=== PATIENT | male | born 1955 | race Caucasian/White ===

== ENCOUNTER 2017-10-09 18:20 | Emergency (ER) | payer OTHER ==
[2017-10-09 18:33] VITALS: BP 156/91; PULSE 81; TEMP 98.5; BMI 25.2
--- NOTE | 2017-10-09 18:34 | PDOC ---
Rapid Medical Evaluation Chief Complaint: Blood Pressure Problem Time Seen by Provider: 10/09/17 18:29 Medical Evaluation: Allergies Allergy/AdvReac Type Severity Reaction Status Date / Time No Known Allergies Allergy Verified 10/09/17 18:29 10/09/17 18:31 Pt. presents to the ED for complaints of HTN, low appetite, dizziness and weakness. Pt was evaluated in an ER in [place] and diagnosed with Vertigo. Was given topriamate for his symptoms, but had an adverse drug reaction. States that he still feels weak. Dizziness has improved some. Exam: No gross neuro deficits, ambulatory. AAOx3, CTAB Orders: Labs, EKG, CXR Pt to proceed to ED for further evaluation Discharge Disposition - Diagnosis Weakness - Referrals - Patient Instructions - Post Discharge Activity
--- NOTE | 2017-10-09 20:09 | PDOC ---
History of Present Illness - General History Source: Patient Exam Limitations: No Limitations - History of Present Illness Initial Comments: 10/09/17 20:26 The patient is a 62 year old male with a significant PMH of hypertension who presents to the emergency department secondary to experiencing episodes of general malaise. The patient reports some generalized weakness associated with his symptoms. The patient states that he was recently seen in the hospital by which he was diagnosed with vertigo. The patient reports that he was also recently prescribed Topiramate for his blood pressure. The patient denies any other symptoms. He denies any fever, chills, nausea, vomit, diarrhea, constipation or urinary symptoms. He denies any chest pain, shortness of breath , headache and dizziness. The patient denies any other complaints. <Dary Berry - Last Filed: 10/09/17 21:40> - General History Source: Patient <Antony Marx - Last Filed: 10/09/17 22:30> - General Chief Complaint: Loss of Appetite Stated Complaint: BLOOD PRESSURE PROBLEM Time Seen by Provider: 10/09/17 18:29 Past History <Dary Berry - Last Filed: 10/09/17 21:40> - Past Medical History Cardiac Disorders: Yes (HX RAPID HEARTBEAT IN PAST) COPD: No HTN: Yes - Immunization History Immunization Up to Date: Yes - Suicide/Smoking/Psychosocial Hx Smoking History: Never smoked Hx Alcohol Use: No Drug/Substance Use Hx: No Substance Use Type: None <Antony Marx - Last Filed: 10/09/17 22:30> - Past Medical History Allergies/Adverse Reactions: Allergies Allergy/AdvReac Type Severity Reaction Status Date / Time topiramate Allergy Severe shaking, Verified 10/09/17 18:32 weakness Home Medications: Ambulatory Orders Aspirin [ASA -] 81 mg PO DAILY 05/28/15 Enalapril Maleate [Vasotec -] 20 mg PO DAILY 05/28/15 Ibuprofen [Motrin -] 600 mg PO TID #21 tablet 05/28/15 Review of Systems - Review of Systems Able to Perform ROS?: Yes Comments:: 10/09/17 20:26 CONSTITUTIONAL: (+)generalized weakness, malaise Absent: fever, chills, diaphoresis, loss of appetite HEENT: Absent: rhinorrhea, nasal congestion, throat pain, throat swelling, difficulty swallowing, mouth swelling, ear pain, eye pain, visual Changes CARDIOVASCULAR: Absent: chest pain, syncope, palpitations, irregular heart rate, lightheadedness , peripheral edema RESPIRATORY: Absent: cough, shortness of breath, dyspnea with exertion, orthopnea, wheezing, stridor, hemoptysis GASTROINTESTINAL: Absent: abdominal pain, abdominal distension, nausea, vomiting, diarrhea, constipation, melena, hematochezia GENITOURINARY: Absent: dysuria, frequency, urgency, hesitancy, hematuria, flank pain, genital pain MUSCULOSKELETAL: Absent: myalgia, arthralgia, joint swelling SKIN: Absent: rash, itching, pallor HEMATOLOGIC/IMMUNOLOGIC: Absent: easy bleeding, easy bruising, lymphadenopathy, frequent infections ENDOCRINE: Absent: unexplained weight gain, unexplained weight loss, heat intolerance, cold intolerance NEUROLOGIC: Absent: headache, focal weakness or paresthesias, dizziness, unsteady gait, seizure, mental status changes, bladder or bowel incontinence PSYCHIATRIC: Absent: anxiety, depression, suicidal or homicidal ideation, hallucinations. <Dary Berry - Last Filed: 10/09/17 21:40> *Physical Exam - Vital Signs Last Vital Signs Temp Pulse Resp BP Pulse Ox 98.5 F 81 18 156/91 100 10/09/17 18:29 10/09/17 18:29 10/09/17 18:29 10/09/17 18:29 10/09/17 18:29 - Physical Exam Comments: 10/09/17 20:26 GENERAL: Well developed, well nourished. Awake and alert. No acute distress. HEENT: Normocephalic, atraumatic. PERRLA, EOMI. No conjunctival pallor. Sclera are non- icteric. Moist mucous membranes. Oropharynx is clear. NECK: Supple. Full ROM. No JVD. Carotid pulses 2+ and symmetric, without bruits. No thyromegaly. No lymphadenopathy. CARDIOVASCULAR: Regular rate and rhythm. No murmurs, rubs, or gallops. Distal pulses are 2+ and symmetric. PULMONARY: No evidence of respiratory distress. Lungs clear to auscultation bilaterally. No wheezing, rales or rhonchi. ABDOMINAL: Soft. Non-tender. Non-distended. No rebound or guarding. No organomegaly. Normoactive bowel sounds. MUSCULOSKELETAL Normal range of motion at all joints. No bony deformities or tenderness. No CVA tenderness. EXTREMITIES: No cyanosis. No clubbing. No edema. No calf tenderness. SKIN: Warm and dry. Normal capillary refill. No rashes. No jaundice. NEUROLOGICAL: Alert, awake, appropriate. Cranial nerves 2-12 intact. No deficits to light touch and temperature in face, upper extremities and lower extremities. No motor deficits in the in face, upper extremities and lower extremities. Normoreflexic in the upper and lower extremities. Normal speech. Toes are down- going bilaterally. Gait is normal without ataxia. PSYCHIATRIC: Cooperative. Good eye contact. Appropriate mood and affect. <Dary Berry - Last Filed: 10/09/17 21:40> - Vital Signs Last Vital Signs Temp Pulse Resp BP Pulse Ox 98.5 F 81 18 156/91 100 10/09/17 18:29 10/09/17 18:29 10/09/17 18:29 10/09/17 18:29 10/09/17 18:29 <Antony Marx - Last Filed: 10/09/17 22:30> Heart Score/ECG Review - ECG Intrepretation Comment:: 10/09/17 21:41 Vent rate: 71bpm AL interval: 150 ms QRS duration: 86 ms QT/QTc 384/417 Normal sinus rhythm Normal ECG Documentation prepared by Dary Berry, acting as medical photographer for Antony Marx MD. <Dary Berry - Last Filed: 10/09/17 21:40> ED Treatment Course - LABORATORY CBC & Chemistry Diagram: 10/09/17 20:48 10/09/17 20:48 <Dary Berry - Last Filed: 10/09/17 21:40> - LABORATORY CBC & Chemistry Diagram: 10/09/17 20:48 10/09/17 20:48 <Antony Marx - Last Filed: 10/09/17 22:30> Medical Decision Making - Medical Decision Making 10/09/17 22:25 Dr. Marx: The scribe's documentation has been prepared under my direction and personally reviewed by me in its entirery. I confirm that the note above accurately reflects all work, treatment, procedures, and medical decision making performed by me. all labs are stable. Blood pressure has improved. Patient to be discharged. Follow up with his pcp. <Antony Marx - Last Filed: 10/09/17 22:30> *DC/Admit/Observation/Transfer - Attestations Scribe Attestion: 10/09/17 20:27 Documentation prepared by Dary Berry, acting as medical photographer for Antony Marx MD. <Dary Berry - Last Filed: 10/09/17 21:40> - Discharge Dispostion Decision to Admit order: No <Antony Marx - Last Filed: 10/09/17 22:30> Diagnosis at time of Disposition: Weakness, Hypertension - Discharge Dispostion Disposition: HOME Condition at time of disposition: Stable - Referrals Referrals: ON STAFF,NOT [Primary Care Provider] - Danie Duran MD [Staff Physician] - - Patient Instructions Printed Discharge Instructions: High Blood Pressure, DI for Muscle Weakness Additional Instructions: Please continue taking medication as you have been prescribed. Follow up with your doctor as soon as possible, Print Language: SLOVENIAN - Post Discharge Activity
[2017-10-09 20:56] LABS: BASO % 0.9 % (0-2.0); EOS % 1.2 % (0-4.5); HEMATOCRIT 43.7 % (35.4-49); HEMOGLOBIN 14.8 GM/dL (11.7-16.9); MCHC 33.9 g/dl (32.0-35.9); MEAN CELL VOLUME 91.4 fl (80-96); MEAN PLT VOLUME 9.1 fl (7.5-11.1); MONO % 9.2 % (3.8-10.2); NEUT % 51.7 % (42.8-82.8); PLATELET COUNT 230 K/MM3 (134-434); RBC 4.78 M/mm3 (4.00-5.60); RDW 12.8 % (11.9-15.9); WHITE BLOOD COUNT 5.6 K/mm3 (4.0-10.0)
[2017-10-09 21:26] LABS: ALBUMIN 4.4 g/dl (3.4-5.0); ANION GAP 8 (8-16); BILIRUBIN,TOTAL 0.4 mg/dL (0.2-1.0); BLOOD UREA NITROGEN 20 mg/dL (7-18); CALCIUM 9.4 mg/dL (8.5-10.1); CHLORIDE 101 mmol/L (98-107); CO2 27 mmol/L (21-32); GLUCOSE,RANDOM 106 mg/dL (74-106); POTASSIUM 3.9 mmol/L (3.5-5.1); SGOT/AST 17 U/L (15-37); SGPT/ALT 21 U/L (12-78); SODIUM 136 mmol/L (136-145); TOT PROT 7.6 g/dl (6.4-8.2)
[2017-10-09 21:27] LABS: ALK PHOS 73 U/L (45-117)
[2017-10-09 22:01] LABS: URINE APPEARANCE CLEAR; URINE BILIRUBIN NEGATIVE (<2.0 mg/dL); URINE COLOR LTYELLOW; URINE GLUCOSE (UA) NEGATIVE (NEGATIVE); URINE KETONE NEGATIVE (NEGATIVE); URINE LEUK ESTERASE TRACE (NEGATIVE); URINE NITRITE NEGATIVE (NEGATIVE); URINE PROTEIN NEGATIVE (NEGATIVE); URINE UROBILINOGEN NEGATIVE mg/dL (0.2-1.0)
[2017-10-09 22:02] LABS: INR 1.03 (0.82-1.09); PROTHROMBIN TIME (PATIENT) 11.6 SEC (9.7-13.0)
[2017-10-09 22:04] LABS: URINE MUCUS RARE
--- NOTE | 2017-10-10 14:31 | EKG ---
Test Reason : Blood Pressure : / mmHG Vent. Rate : 071 BPM Atrial Rate : 071 BPM P-R Int : 150 ms QRS Dur : 086 ms QT Int : 384 ms P-R-T Axes : 070 052 054 degrees QTc Int : 417 ms NORMAL SINUS RHYTHM NORMAL ECG WHEN COMPARED WITH ECG OF 28-MAY-2015 15:07, NO SIGNIFICANT CHANGE WAS FOUND Confirmed by JOAQUIN RAINEY MD ([id number]) on 10/10/2017 2:31:03 PM Referred By: Confirmed By:JOAQUIN RAINEY MD
== END 2017-10-09 22:31 | disposition home or self-care (01) ==
LOC: JER 18:20
DX: R53.1 Weakness (principal); I10 Essential (primary) hypertension
CPT/HCPCS: 36415; 71045-TC-FY; 80053; 81003; 81015; 82550; 82553; 84484; 85025; 85610; 93005; 93010; 99283-25